=== PATIENT | female | born 1990 | race African-American/Black ===

== ENCOUNTER 2018-12-12 18:10 | Emergency (ER) | payer SELFPAY ==
[~2018-12-12] VITALS: Ht 160 cm; Wt 67.6 kg
[2018-12-12 18:16] VITALS: BP_SYST 124
[2018-12-12] MEDS ORDERED: ONDANSETRON 4 MG ODT TAB PO ONE (19:00)
[2018-12-12 19:01] VITALS: BP_SYST 124
== END 2018-12-12 19:01 | disposition home or self-care (01) ==
LOC: SED 18:10
DX: G43.909 Migraine, unspecified, not intractable, without status migrainosus (principal); F17.210 Nicotine dependence, cigarettes, uncomplicated; Z71.6 Tobacco abuse counseling
CPT/HCPCS: 99283; Q0162

== ENCOUNTER 2020-06-27 00:04 | Emergency (ER) | payer OTHER ==
[~2020-06-27] VITALS: Ht 160 cm; Wt 67.6 kg
[2020-06-27 00:24] VITALS: BP_SYST 112
[2020-06-27] MEDS ORDERED: HYDROcodone/ACETAMIN 5-325 MG TAB (NORCO/ VICODIN) PO ONE (01:45)
[2020-06-27] MEDS ORDERED: IBUPROFEN 800 MG TABLET PO ONE (01:45)
== END 2020-06-27 01:42 | disposition left against medical advice (07) ==
LOC: SED 00:04
DX: R51.9 Headache, unspecified (principal)
CPT/HCPCS: 99281